=== PATIENT | female | born 1990 | race Caucasian/White ===

== ENCOUNTER 2016-07-09 12:03 | Emergency (ER) | payer OTHER ==
[~2016-07-09] VITALS: Ht 157.5 cm; Wt 54.3 kg
[2016-07-09 12:29] VITALS: Ht 157.5 cm; Wt 54.3 kg
[2016-07-09] MEDS ORDERED: CEPH-443 PO (14:43)
[2016-07-09] MEDS ORDERED: BACTDS PO (14:43)
[2016-07-09] MEDS ORDERED: DIPHTH/TET/ACEL PERTUSS (ADULT) 0.5 ML VIAL IM* ONE (15:00)
--- NOTE | 2016-07-09 15:10 | ERD ---
DATE OF SERVICE: HISTORY OF PRESENT ILLNESS: The patient is a 25-year-old female complaining of pain to her right bu ttock. Patient noticed it 2 days ago. She has had no fevers. She has not used any medication for h er symptoms. She does not recall her last tetanus shot. Denies any other medical problems. PAST MEDICAL HISTORY: Denies any medical problems. ALLERGIES: DENIES ALLERGIES TO MEDICATIONS. PAST SURGICAL HISTORY: Denies surgeries or hospitalizations. REVIEW OF SYSTEMS: A 12-point review of systems was done. Refer to the HPI for positives, all othe r systems are negative. PHYSICAL EXAMINATION: VITAL SIGNS: Temperature is 98.2, pulse 77, blood pressures 201/81, respiratory rate 85, O2 saturat ion 98% on room air. Pain intensity is 7/10. GENERAL: The patient is well-appearing, well-nourished, in no acute distress. HEENT: Atraumatic. Conjunctivae are pink. Pupils equal, round, and reactive to light. There is no s cleral icterus. Tympanic membranes clear bilaterally. Oropharynx clear. No nystagmus or photophobia . CHEST: Clear to auscultation bilaterally. There are no rales, wheezes or rhonchi. HEART: Regular rate and rhythm. No murmurs, clicks, rubs or gallops. No S3 or S4. SKIN: There is erythema noted to the right buttock, with fluctuance. No lymphatic streaking. Mild induration, mild tenderness to palpation. DIAGNOSIS: Cellulitis. MEDICAL DECISION MAKING: There was no collection of purulence. I did not feel that there was indic ation for incision and drainage. The patient will be given oral antibiotics and told to use warm co mpresses; however, told to return in 2 days have a possible I and D done at that time. EMERGENCY ROOM COURSE: The patient was given a tetanus shot in the ER. DISCHARGE: The patient was discharged stable. Patient was given a prescription for Bactrim and Kef [place] and told to follow up with her primary care within 1 to 2 days for reevaluation. Patient was to ld if symptoms progress or worsen, to return to the ER. All other questions were answered at the ti me of discharge. Discharge summary was given at the time of departure. Patient understood and comp lied with the plan. Dictated By: ANAND HANNAH for [facility]/HOWARD Conf#: [id number] DID#: [id number]
== END 2016-07-09 14:49 | disposition home or self-care (01) ==
LOC: FTE 12:03
DX: L03.317 Cellulitis of buttock (principal); Z23 Encounter for immunization
CPT/HCPCS: 90471; 90715; Z7502